=== PATIENT | female | born 2000 | race Caucasian/White ===

== ENCOUNTER 2021-06-12 15:59 | Emergency (ER) | payer BC, SELFPAY ==
--- NOTE | ~2021-06-12 | CT_ITS ---
EXAMINATION: CT ABDOMEN AND PELVIS WITH CONTRAST CLINICAL INFORMATION: 21-year-old with abdominal pain COMPARISON: None TECHNIQUE: Multidetector volumetric images were obtained from the superior aspect of the liver through the pubic symphysis following administration 80 mL of Omnipaque 350 intravenous contrast. Sagittal and coronal reformatted images were obtained on the technologist's workstation. Oral contrast: No This CT examination was performed using dose optimization techniques as appropriate, variously including the following: *Automated exposure control *Adjustment of mA and/or kV according to patient size (this includes techniques or standardized protocols for targeted exams where dose is matched to indication/reason for exam; i.e. extremities or head) *Use of iterative reconstruction technique DLP: 835 mGy-cm FINDINGS: LUNG BASES: The visualized lung bases are unremarkable. LIVER, GALLBLADDER, AND BILIARY TREE: The liver is normal in size, shape, and attenuation. No focal hepatic lesion or biliary ductal dilatation is present. The gallbladder is unremarkable with no evidence of radiopaque gallstones, gallbladder wall thickening, or obvious pericholecystic inflammatory changes. PANCREAS: Unremarkable. SPLEEN: Spleen measured 13.4 cm, enlarged. ADRENAL GLANDS: Unremarkable. KIDNEYS AND URETERS: The kidneys are normal in size, shape, and attenuation. No hydronephrosis, hydroureter, or calculi seen. No perinephric stranding. BLADDER: Unremarkable. GASTROINTESTINAL TRACT: The small bowel is unremarkable. The appendix is not identified. There are multiple mesenteric lymph nodes seen along the midline and right-sided mesentery, measured between 0.5 and 1.7 cm. There is circumferential thickening of the collapsed colonic loops, mostly involving the ascending and transverse colonic loops and is suggestive for colitis. No evidence of diverticulitis or diverticulosis. ABDOMINAL WALL: No significant hernia is appreciated. VASCULAR: Unremarkable. PELVIC VISCERA: Uterus is anteverted and there is trace of fluid in the pelvis. There are bilateral follicular ovarian cysts. OSSEOUS STRUCTURES: Unremarkable. CT/CT abdomen pelvis w con IMPRESSION: 1. Colitis with. Mesenteric adenitis 2. Trace of fluid in the pelvis, most likely physiologic in nature. Bilateral ovarian follicular cysts. Fleischner guidelines were followed.
[2021-06-12 16:09] VITALS: BP 99/60; PULSE 70; RESP 16; TEMP 36.7; O2SAT 96
--- NOTE | 2021-06-12 16:15 | ED_ITS ---
HPI - Nausea/Vomiting/Diarrhea General Chief complaint: Nausea/Vomiting/Diarrhea Stated complaint: vomiting Source: patient Mode of arrival: ambulatory Limitations: no limitations History of Present Illness HPI Narrative: 21-year-old female presents with abdominal pain, abdominal cramping, nausea, vomiting, chills, intermittent fevers starting this morning around 10:00. Patient does not report any sick contacts, and has very little social interaction with anyone other than her family members. Denies . MD elicited complaint: nausea, vomiting, diarrhea and abdominal pain Onset (ago): day(s) (1) Description of vomiting: watery and bilious Description of diarrhea: loose Associated nausea: Yes Associated abdominal pain: Yes Location of pain: diffuse Pain consistency: constant and colicky Severity: moderate Pain scale (0-10): 6 Quality: cramping and dull Exacerbating factors: eating, bowel movement and vomiting Relieving factors: none Associated symptoms: fever/chills, loss of appetite, malaise and nausea/vomiting Related Data Previous Rx's Medication Instructions Recorded ciprofloxacin HCl 500 mg tablet 500 mg PO Q12H 7 Days #14 tab 06/12/21 metronidazole 500 mg tablet 500 mg PO Q8H 7 Days #21 tab 06/12/21 ondansetron 4 mg disintegrating 4 mg PO Q8H PRN #10 tab 06/12/21 tablet Allergies Allergy/AdvReac Type Severity Reaction Status Date / Time No Known Allergies Allergy Verified 06/12/21 16:15 Review of Systems Review of Systems: Constitutional: No Weight loss, No Fever, No Chills, No Night Sweats, positive Fatigue, No Malaise ENT/Mouth: No Hearing loss, No Ear Pain, No Nasal Congestion, No Sinus Pain, No Hoarseness, No sore throat, No Rhinorrhea, No Swallowing Difficulty Eyes: No Eye Pain, No Swelling, No Redness, No Foreign Body, No Discharge, No Vision Changes Cardiovascular: No Chest Pain, No SOB, No Dyspnea on Exertion, No Orthopnea, No Edema, No Palpitations Respiratory: No Cough, No Sputum, No Wheezing, No Smoke Exposure, No Dyspnea Gastrointestinal: Positive Nausea, Positive Vomiting, positive Diarrhea, positive abdominal Pain, No Hematochezia, No Melena Genitourinary: no irregular bleeding, No Dysuria, No Urinary Frequency, No Hematuria, No Urinary Incontinence, No Urgency, No Flank Pain, No Urinary Flow Changes, No Hesitancy Musculoskeletal: No joint pain, No Myalgias, No Joint Swelling Skin: No Skin Lesions, No rash Neuro: No Weakness, No Numbness, No Paresthesias, No Loss of Consciousness, No Dizziness, No Headache Psych: No Anxiety/Panic, No Depression, No SI/HI/AH/VH, No Social Issues Heme/Lymph: No Bruising, No Bleeding,No Lymphadenopathy Endocrine: No Polyuria, No Polydipsia, No Temperature Intolerance Yes all other systems are reviewed and are negative Gastrointestinal: Gastrointestinal: Reports nausea PMFSH Past Medical History Attestation statement: The following information was validated with the patient. Source: old records reviewed Medical History (Updated 06/12/21 @ 20:45 by Mary Germain NP) ADHD GERD (gastroesophageal reflux disease) Social History Social History Advance Directives: No Advance Directives Information Provided: No Patient : No Physical Exam Vital Signs: Vital Signs: Last Vital Signs Temp 97.6 F 06/12/21 21:07 Pulse 86 06/12/21 21:07 Resp 16 06/12/21 21:07 BP 104/64 06/12/21 21:07 Pulse Ox 100 06/12/21 21:07 BMI result Body Mass Index 24.0 Appearance: Alert. Oriented X3. Mild distress. Appears tired. Eyes: Pupils equal, round and reactive to light. ENT: Pharynx normal. Moist mucous membranes. Neck: Normal inspection. Neck supple. CVS: Normal heart rate and rhythm. Pulses normal. Respiratory: No respiratory distress. Breath sounds normal. Abdomen: Soft and diffusely tender. Skin: Skin warm and dry. Normal skin color. Normal skin turgor. Extremities: No lower extremity edema. Gait well-balanced well coordinated. Neuro: No motor deficit. No sensory deficit. Cranial nerves 2-12 intact. Course Course Course Narrative: 21-year-old female presents with 1 day of abdominal pain, abdominal cramping, nausea, vomiting, chills. Has a history of abnormal eosinophil count. Patient does not have any prior history of sick contacts, states that she has been socially isolating and does not leave her home. Will order labs, urinalysis, influenza. If any of these lab values return abnormal we will investigate further with CT scan. 18:00 white count elevated at 21.2,Order for lactic, cultures, 2 L of fluids to meet 30 milliliters/kilogram. Will give ceftriaxone IV, order for CT scan abdomen pelvis with contrast. 20:30 CT scan indicates colitis. Will add Flagyl to her IV regimen. Patient states that she feels well enough to go home. Detailed it instructions regarding signs and symptoms indicating need for emergent intervention were und erstood by mother and patient. Patient verbalized understanding of and agrees to plan of care to discharge home. Verbalized understanding of signs and symptoms indicating need for emergent intervention MDM - Nausea/Vomiting/Diarrhea MDM Narrative Medical decision making narrative: Influenza, gastroenteritis, appendicitis, colitis Differential Diagnosis Differential diagnosis: Likely food poisoning, gastroenteritis, drug-induced prabha sea and vomiting and dehydration Medical Records Attestation: I reviewed the patient's medical records. Lab Data Attestation: I reviewed the patient's lab results. Result diagrams: 06/12/21 16:27 06/12/21 16:27 Labs: Lab Results 06/12/21 06/12/21 06/12/21 Range/Units 16:27 16:27 16:27 WBC 21.2 H (4.8-10.8) X10*3/uL RBC 4.33 (4.20-5.50) X10*6/uL Hgb 10.4 L (12.0-16.0) g/dl Hct 33.0 L (37.0-47.0) % MCV 76.2 L (80.0-98.0) fL MCH 24.0 L (27.0-33.0) pg MCHC 31.5 (31.0-35.0) g/dl RDW 16.7 H (11.0-16.0) % Plt Count 299 (160-400) X10*3/uL MPV 11.0 (9.4-12.3) fL Immature Gran % (Auto) 0.4 (0.0-0.4) % Neut % (Auto) 93.8 H (45-73) % Lymph % (Auto) 3.9 L (20-40) % [place] % (Auto) 1.6 L (2-11) % Eos % (Auto) 0.0 (0-4) % Baso % (Auto) 0.3 (0-2) % Lymph # (Auto) 0.8 L (1.2-4.9) X10*3/uL [place] # (Auto) 0.3 (0.1-1.2) X10*3/uL Eos # (Auto) 0.0 (0.0-0.4) X10*3/uL Baso # (Auto) 0.1 (0.0-0.2) X10*3/uL Abs Immat Gran (auto) 0.08 H (0.00-0.03) X10*3/uL Absolute Neuts (auto) 19.9 H (2.0-8.3) x10*3/uL Absolute Nucleated RBC 0.000 (0.0-0.012) X10*3/uL Nucleated RBC % (auto) 0.0 (0.0-0.2) /100WBC Smear Tech's Comments VERIFIED Sodium 137 (135-145) mmol/L Potassium 3.8 (3.3-5.1) mmol/L Chloride 104 (96-108) mmol/L Carbon Dioxide 22 (22-29) mmol/L Anion Gap 15 (12-20) BUN 9 (9-16) mg/dL Creatinine 0.74 (0.5-1.4) mg/dL Estim Creat Clear Calc TNP Estimated GFR > 60 Random Glucose 150 H (60-115) mg/dL Lactic Acid (0.5-2.0) mmol/L Calcium 9.5 (8.4-10.2) mg/dL Total Bilirubin 0.6 (0.0-1.0) mg/dL Direct Bilirubin 0.2 (0.0-0.5) mg/dL AST 18 (5-31) U/L ALT 13 (0-31) U/L Alkaline Phosphatase 80 (39-117) U/L Total Protein 7.0 (6.5-8.0) g/dL Albumin 4.3 (3.5-5.0) g/dL Lipase 16 (8-78) U/L Urine Color Urine Appearance Urine pH (5.0-8.0) Ur Specific [place] (1.005-1.025) Urine Protein (NEG-TRACE) MG/DL Urine Glucose (UA) (NEG) MG/DL Urine Ketones (NEG) MG/DL Urine Blood (NEG) Urine Nitrite (NEG) Ur Leukocyte Esterase (NEG) Urine Test (NEGATIVE) Influenza Type A (PCR) NEGATIVE (Negative) Influenza Type B (PCR) NEGATIVE (Negative) RSV RNA Qual (PCR) NEGATIVE (Negative) SARS-CoV-2 RNA (RT-PCR) NEGATIVE (Negative) 06/12/21 06/12/21 06/12/21 Range/Units 19:14 19:15 19:15 WBC (4.8-10.8) X10*3/uL RBC (4.20-5.50) X10*6/uL Hgb (12.0-16.0) g/dl Hct (37.0-47.0) % MCV (80.0-98.0) fL MCH (27.0-33.0) pg MCHC (31.0-35.0) g/dl RDW (11.0-16.0) % Plt Count (160-400) X10*3/uL MPV (9.4-12.3) fL Immature Gran % (Auto) (0.0-0.4) % Neut % (Auto) (45-73) % Lymph % (Auto) (20-40) % [place] % (Auto) (2-11) % Eos % (Auto) (0-4) % Baso % (Auto) (0-2) % Lymph # (Auto) (1.2-4.9) X10*3/uL [place] # (Auto) (0.1-1.2) X10*3/uL Eos # (Auto) (0.0-0.4) X10*3/uL Baso # (Auto) (0.0-0.2) X10*3/uL Abs Immat Gran (auto) (0.00-0.03) X10*3/uL Absolute Neuts (auto) (2.0-8.3) x10*3/uL Absolute Nucleated RBC (0.0-0.012) X10*3/uL Nucleated RBC % (auto) (0.0-0.2) /100WBC Smear Tech's Comments Sodium (135-145) mmol/L Potassium (3.3-5.1) mmol/L Chloride (96-108) mmol/L Carbon Dioxide (22-29) mmol/L Anion Gap (12-20) BUN (9-16) mg/dL Creatinine (0.5-1.4) mg/dL Estim Creat Clear Calc Estimated GFR Random Glucose (60-115) mg/dL Lactic Acid 0.8 (0.5-2.0) mmol/L Calcium (8.4-10.2) mg/dL Total Bilirubin (0.0-1.0) mg/dL Direct Bilirubin (0.0-0.5) mg/dL AST (5-31) U/L ALT (0-31) U/L Alkaline Phosphatase (39-117) U/L Total Protein (6.5-8.0) g/dL Albumin (3.5-5.0) g/dL Lipase (8-78) U/L Urine Color DK YELLOW Urine Appearance HAZY Urine pH 6.0 (5.0-8.0) Ur Specific [place] 1.025 (1.005-1.025) Urine Protein TRACE (NEG-TRACE) MG/DL Urine Glucose (UA) NEG (NEG) MG/DL Urine Ketones >=80 (NEG) MG/DL Urine Blood NEG (NEG) Urine Nitrite NEG (NEG) Ur Leukocyte Esterase NEG (NEG) Urine Test NEGATIVE (NEGATIVE) Influenza Type A (PCR) (Negative) Influenza Type B (PCR) (Negative) RSV RNA Qual (PCR) (Negative) SARS-CoV-2 RNA (RT-PCR) (Negative) Imaging Data CT abdomen pelvis: Attestation: I personally reviewed and interpreted this imaging study as follows: Radiologist's impression: FINDINGS: LUNG BASES: The visualized lung bases are unremarkable.? LIVER, GALLBLADDER, AND BILIARY TREE: The liver is normal in size, shape, and attenuation. No focal hepatic lesion or biliary ductal dilatation is present. The gallbladder is unremarkable with no evidence of radiopaque gallstones, gallbladder wall thickening, or obvious pericholecystic inflammatory changes.? PANCREAS: Unremarkable.? SPLEEN: Spleen measured 13.4 cm, enlarged.? ADRENAL GLANDS: Unremarkable.? KIDNEYS AND URETERS: The kidneys are normal in size, shape, and attenuation. No hydronephrosis, hydroureter, or calculi seen. No perinephric stranding. ? BLADDER: Unremarkable.? GASTROINTESTINAL TRACT: The small bowel is unremarkable. The appendix is not identified. There are multiple mesenteric lymph nodes seen along the midline and right-sided mesentery, measured between 0.5 and 1.7 cm. There is circumferential thickening of the collapsed colonic loops, mostly involving the ascending and transverse colonic loops and is suggestive for colitis. No evidence of diverticulitis or diverticulosis.? ABDOMINAL WALL: No significant hernia is appreciated.? VASCULAR: Unremarkable. PELVIC VISCERA: Uterus is anteverted and there is trace of fluid in the pelvis. There are bilateral follicular ovarian cysts.? OSSEOUS STRUCTURES: Unremarkable.? CT/CT abdomen pelvis w con IMPRESSION: ? 1. Colitis with. Mesenteric adenitis 2. Trace of fluid in the pelvis, most likely physiologic in nature. Bilateral ovarian follicular cysts.? ? Fleischner guidelines were followed. Discharge Plan Discharge Clinical Impression: Colitis, Follicular cyst of both ovaries, Mesenteric adenitis Patient Disposition: Home, Self-Care Instructions: Ovarian Cyst (ED), Adenitis (ED), Colitis (ED) Additional Instructions: You were evaluated for abdominal pain, nausea, vomiting and chills. CT scan of abdomen pelvis indicates colitis. The lymph nodes surrounding the colitis are inflamed. This is called mesenteric adenitis. Please take ciprofloxacin 500 mg twice a day for the next 7 days. Take Flagyl 500 mg 3 times a day for the next 7 days. Drink plenty of fluids. Please use Zofran 4 mg sublingual tablets for nausea and vomiting. Do not take more medication than directed. Take this medication every 8 hours as needed. You may consider following up with primary care physician later this week for follow-up. Follow-up with gastroenterology. Please call Dr. Vicente's office for consultation. Incidental finding on the CT scan of the abdomen and pelvis indicates bilateral follicular ovarian cysts. 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 The cysts are benign. Thank you for choosing this emergency department for evaluation. Please follow-up with primary care physician as needed. Return to the emergency department for any new, concerning, or worsening symptoms. Prescriptions: New ciprofloxacin HCl 500 mg tablet 500 mg PO Q12H 7 Days Qty: 14 0RF Rx Instructions: Colitis metronidazole 500 mg tablet 500 mg PO Q8H 7 Days Qty: 21 0RF Rx Instructions: Colitis ondansetron 4 mg tablet,disintegrating 4 mg PO Q8H PRN (Reason: nausea and vomiting) Qty: 10 0RF Referrals: Daisy Vicente MD [Physician] - (Colitis) Interventions: ED Discharge Assessment Last Done: 06/12/21 21:30 Discharge Date/Time: 06/12/21 21:32
[2021-06-12 16:36] LABS: Basophils Absolute Auto 0.1 X10*3/uL (0.0-0.2); Basophils Percent Auto 0.3 % (0-2); Hemoglobin 10.4 g/dl (12.0-16.0); Imm Gran Abs Auto 0.08 X10*3/uL (0.00-0.03); Imm Gran Pct Auto 0.4 % (0.0-0.4); Lymphocytes Absolute Auto 0.8 X10*3/uL (1.2-4.9); Lymphocytes Percent Auto 3.9 % (20-40); MANUAL DIFF FLAG SCAN; Mean Corpuscular HGB Conc 31.5 g/dl (31.0-35.0); Mean Corpuscular Volume 76.2 fL (80.0-98.0); Monocytes Absolute Auto 0.3 X10*3/uL (0.1-1.2); Monocytes Percent Auto 1.6 % (2-11); Neutrophils Absolute Auto 19.9 x10*3/uL (2.0-8.3); Neutrophils Percent Auto 93.8 % (45-73); Platelet Count 299 X10*3/uL (160-400); Red Blood Count 4.33 X10*6/uL (4.20-5.50); Red Cell Distribution Width 16.7 % (11.0-16.0); SCAN SMEAR FLAG 1; White Blood Count 21.2 X10*3/uL (4.8-10.8)
[2021-06-12 16:51] LABS: Alanine Aminotransferase 13 U/L (0-31); Albumin Level 4.3 g/dL (3.5-5.0); Alkaline Phosphatase 80 U/L (39-117); Anion Gap 15 (12-20); Aspartate Amino Transferase 18 U/L (5-31); Bilirubin Direct 0.2 mg/dL (0.0-0.5); Bilirubin Total 0.6 mg/dL (0.0-1.0); Blood Urea Nitrogen 9 mg/dL (9-16); Calcium 9.5 mg/dL (8.4-10.2); Carbon Dioxide 22 mmol/L (22-29); Chloride 104 mmol/L (96-108); Estimated Glomerular Filt Rate > 60; Glucose Random 150 mg/dL (60-115); Lipase 16 U/L (8-78); Potassium 3.8 mmol/L (3.3-5.1); Sodium 137 mmol/L (135-145)
[2021-06-12 17:01] LABS: SLIDE REVIEW VERIFIED
[2021-06-12 17:13] LABS: Influenza A PCR NEGATIVE (Negative); Influenza B PCR NEGATIVE (Negative); Resp Syncy Virus RNA Qual PCR NEGATIVE (Negative); SARS COV2 PCR INHOUSE NEGATIVE (Negative)
[2021-06-12 17:23] VITALS: BP 113/63; PULSE 84; RESP 16; O2SAT 98; BMI 24.0
[2021-06-12 19:03] VITALS: BP 95/68; PULSE 67; RESP 17; O2SAT 96
[2021-06-12 19:23] LABS: Appearance Urine HAZY; Color Urine DK YELLOW; Glucose Urine UA NEG (NEG); Leukocyte Esterase Urine NEG (NEG); Nitrite Urine NEG (NEG); Specific Gravity - Urine 1.025 (1.005-1.025); Urine Blood NEG (NEG); Urine Ketones >=80 MG/DL (NEG); Urine Protein TRACE MG/DL (NEG-TRACE)
[2021-06-12 19:24] LABS: Urine Pregnancy NEGATIVE (NEGATIVE)
[2021-06-12] MEDS: 0.9 % Sodium Chloride 1,000 ML 999 ML IVCONT ×2 (19:24→20:06)
[2021-06-12 19:25] LABS: UPreg QC Valid YES
[2021-06-12] MEDS: cefTRIAXone sodium 1 GM in 0.9 % Sodium Chloride 50 ML IV (19:25)
[2021-06-12] MEDS: ondansetron HCL 4 MG/2 ML VIAL IVPUSH (19:25)
[2021-06-12 19:32] LABS: Lactic Acid 0.8 mmol/L (0.5-2.0)
[2021-06-12] MEDS: iohexoL 350 MG/ML 100 ML INFUS..BTL IV (19:42)
[2021-06-12] MEDS: Acetaminophen 325 MG TABLET 975 MG PO (20:32)
[2021-06-12] MEDS: metroNIDAZOLE/NS 500 MG/100 ML PIGGYBACK 100 MG IV (20:37)
[2021-06-12 21:07] VITALS: BP 104/64; PULSE 86; RESP 16; TEMP 36.4; O2SAT 100
== END 2021-06-12 21:32 | disposition home or self-care (01) ==
PROVIDERS: Nurse Practitioner Family; Emergency Provider Emergency Medicine Emergency Medical Services
DX: K52.9 Noninfective gastroenteritis and colitis, unspecified (principal); I88.0 Nonspecific mesenteric lymphadenitis; N83.02 Follicular cyst of left ovary; N83.01 Follicular cyst of right ovary; Z20.822 Contact with and (suspected) exposure to COVID-19
CPT/HCPCS: 0241U; 36415; 74177; 80048; 80076; 81003; 81025; 83605; 83690; 85025; 87040; 96361; 96365; 96375; 99284; J0696; J2405; Q9967